=== PATIENT | male | born 1955 | race Caucasian/White ===

== ENCOUNTER → 2023-10-28 07:22 | Outpatient (REF) | payer MEDICARE, OTHER, SELFPAY | LOC: HWRAD 07:22 | PROVIDERS: ATTENDING PHYSICIAN Family Medicine | DX: R26.89 Other abnormalities of gait and mobility (principal); R42 Dizziness and giddiness | CPT/HCPCS: 70450 ==

== ENCOUNTER → 2024-08-26 15:52 | Outpatient (REF) | payer MEDICARE, OTHER, SELFPAY | LOC: HWRCS 15:52 | PROVIDERS: ATTENDING PHYSICIAN Internal Medicine Cardiovascular Disease; FAMILY PHYSICIAN Family Medicine | DX: R06.02 Shortness of breath (principal); I25.10 Atherosclerotic heart disease of native coronary artery without angina pectoris; I25.2 Old myocardial infarction; E11.9 Type 2 diabetes mellitus without complications; Z79.4 Long term (current) use of insulin; E78.5 Hyperlipidemia, unspecified | CPT/HCPCS: 93306 ==

== ENCOUNTER → 2024-09-30 08:06 | Outpatient (REF) | payer MEDICARE, OTHER, SELFPAY ==
--- NOTE | 2024-09-30 09:29 | CARDSERVDEF ---
Echocardiogram with Definity completed after protocol screening completed. Allergies verified.
Patent IV site: _Left antecubital 22 G PC inserted first attempt____
IV site flushed with 0.9% NaCl pre and post administration.
Diluted bolus method utilized to enhance visualization of ventricular stephens.
Total volume given: _3.5___ mL
Patient tolerated all procedures well without complications.
Heplock D/C ed at 0916, site clear, no redness, no edema. Pressure held, no bleeding, 2x2 applied and taped. Pt offers no complaints.
== END ==
LOC: RCS 08:06
PROVIDERS: ATTENDING PHYSICIAN Internal Medicine; FAMILY PHYSICIAN Internal Medicine Cardiovascular Disease; REFERRING PHYSICIAN Family Medicine
DX: R06.02 Shortness of breath (principal); I25.10 Atherosclerotic heart disease of native coronary artery without angina pectoris; I25.2 Old myocardial infarction; E78.5 Hyperlipidemia, unspecified
CPT/HCPCS: 93308; Q9957

== ENCOUNTER → 2024-12-08 08:15 | Outpatient (REF) | payer MEDICARE, OTHER, SELFPAY ==
[2024-12-08 08:50] LABS: % Basophils 0.6 % (0-2); % Eosinophils 3.1 % (0-6); % Immature Granulocytes 1.1 % (0-0.5); % Lymphocytes 23.9 % (20.5-51.1); % Monocytes 6.4 % (1.7-9.3); % Neutrophils 64.9 % (42.2-75.2); Absolute Eosinophils 0.2 10^3/uL (0-0.7); Absolute Immature Granulocytes 0.1 10^3/uL (0-0.05); Absolute Lymphocytes 1.3 10^3/uL (1.2-3.4); Absolute Monocytes 0.4 10^3/uL (0.1-0.6); Absolute Neutrophils 3.5 10^3/uL (1.4-6.5); Hematocrit 36.5 % (39.0-52.0); Hemoglobin 12.8 g/dL (13.0-18.0); Mean Corp Hgb Conc. 35.1 g/dL (33.0-37.0); Mean Corpuscular Volume 96.8 fL (80.0-94.0); Mean Platelet Volume 9.7 fL (7.4-10.4); Nucleated Red Blood Cells % 0 % (-); Platelet Count 106 10^3/uL (130-400); Red Blood Cell Count 3.77 10^6/uL (4.70-6.10); Red Cell Dist. Width 13.3 % (11.5-14.5); Reticulocyte Count 3.1 % (0.4-2.8); White Blood Cell Count 5.4 10^3/uL (4.8-10.8)
[2024-12-08 09:59] LABS: ALT (SGPT) 81 U/L (0-50); AST (SGOT) 46 U/L (17-59); Alkaline Phosphatase 144 U/L (38-126); Blood Urea Nitrogen 33 mg/dl (9-20); Direct Bilirubin 0.3 mg/dl (0.0-0.4); Iron 106 ug/dl (49-181); LDH 228 U/L (120-246); Total Bilirubin 0.7 mg/dl (0.2-1.3); Total Protein 7.5 g/dl (6.3-8.2)
[2024-12-08 10:09] LABS: Percent Saturation 28 % (20-50); Total Iron Binding Capacity 376 ug/dl (261-462)
[2024-12-08 10:38] LABS: Ferritin 91.8 ng/ml (17.9-464.0)
[2024-12-08 10:44] LABS: Erythrocyte Sed Rate 30 mm/hour (0-20)
[2024-12-08 11:09] LABS: Folate 14.8 ng/ml (2.76-20); Vitamin B12 549 pg/ml (239-931)
[2024-12-10 00:30] LABS: Erythropoietin (EPO) 7 mU/mL (4-27)
[2024-12-10 05:06] LABS: Haptoglobin 201 mg/dL (30-200)
== END ==
LOC: REG 08:15
PROVIDERS: ATTENDING PHYSICIAN Internal Medicine Hematology & Oncology
DX: D64.9 Anemia, unspecified (principal); D69.6 Thrombocytopenia, unspecified
CPT/HCPCS: 36415; 71046; 76705; 80076; 82565; 82607; 82668; 82728; 82746; 82784; 83010; 83521; 83540; 83550; 83615; 84155; 84165; 84443; 84520; 85025; 85045; 85652; 86334

== ENCOUNTER → 2024-12-22 12:49 | Outpatient (REF) | payer MEDICARE, OTHER, SELFPAY | LOC: RAD 12:49 | PROVIDERS: ATTENDING PHYSICIAN Internal Medicine Cardiovascular Disease; FAMILY PHYSICIAN Family Medicine | DX: M79.604 Pain in right leg (principal); M79.605 Pain in left leg | CPT/HCPCS: 93922; 93925 ==

== ENCOUNTER → 2025-01-19 09:14 | Outpatient (REF) | payer MEDICARE, OTHER, SELFPAY | LOC: HWRAD 09:14 | PROVIDERS: ATTENDING PHYSICIAN Internal Medicine Gastroenterology; FAMILY PHYSICIAN Family Medicine; REFERRING PHYSICIAN Internal Medicine Hematology & Oncology | DX: D50.9 Iron deficiency anemia, unspecified (principal) | CPT/HCPCS: 76700 ==